=== PATIENT | female | born 1995 | race Caucasian/White ===

== ENCOUNTER 2018-10-08 20:30 | Emergency (ER) | payer OTHER ==
[~2018-10-08] VITALS: Ht 162.6 cm; Wt 108.4 kg
[2018-10-08] MEDS ORDERED: VITAMIN C500 M5 PO (20:50)
== END 2018-10-08 22:05 | disposition home or self-care (01) ==
LOC: ED 20:30
DX: J20.9 Acute bronchitis, unspecified (principal); F17.200 Nicotine dependence, unspecified, uncomplicated
CPT/HCPCS: 99283